=== PATIENT | female | born 1965 | race Caucasian/White ===

== ENCOUNTER 2022-01-09 05:57 | Day surgery (SDC) | payer OTHER ==
[~2022-01-09] VITALS: Ht 160 cm; Wt 69.4 kg
[2022-01-09] MEDS ORDERED: diphenhydrAMINE 50 MG/ML VIAL ONE (07:36)
[2022-01-09] MEDS ORDERED: fentaNYL citrate 0.05 MG/ML VIAL ONE (07:36)
[2022-01-09] MEDS ORDERED: MIDAZOLAM 5 MG/5 ML VIAL ONE (07:37)
[2022-01-09] MEDS ORDERED: LIDOCAINE 2% 100 MG/5 ML UJET TP ONE (07:37)
== END 2022-01-09 09:41 | disposition home or self-care (01) ==
LOC: MDS 05:57 → MMU 05:58 → MDS 09:41
PROVIDERS: ATTEND Internal Medicine Gastroenterology
DX: Z12.11 Encounter for screening for malignant neoplasm of colon (principal); K63.5 Polyp of colon; K50.90 Crohn's disease, unspecified, without complications; E11.9 Type 2 diabetes mellitus without complications; Z86.010 Personal history of colon polyps; Z90.710 Acquired absence of both cervix and uterus; Z98.890 Other specified postprocedural states; Z20.822 Contact with and (suspected) exposure to COVID-19
CPT/HCPCS: 45380; 45385; 87426; 88305; J2250; J3010; J1200